=== PATIENT | female | born 1990 | race Two or more races ===

== ENCOUNTER 2019-07-26 15:33 | Inpatient (IN) ==
[2019-07-26] MEDS ORDERED: MEPERIDINE 50 MG/1 ML VIAL IV PRN (15:46)
[2019-07-26 16:14] LABS: Basophils % 0.3 % (0.0-0.8); Eosinophils # 0.1 10*3/uL (0.0-0.87); Hematocrit 25.6 VOL% (35.7-47.0); Immature Granulocytes % 0.7 %; Immature Granulocytes Absolute 0.08 #; Lymphocytes # 2.4 10*3/uL (1.4-4.0); Lymphocytes % 21.4 % (21.3-54.2); Mean Corpuscular HGB Conc 31.3 GM/DL (32-36); Mean Corpuscular Volume 77.3 FL (87-102); Monocytes % 5.6 % (1.7-12.7); Platelet Count 214 T/CUMM (130-400); Red Blood Count 3.31 MC/CUMM (3.8-5.5); Red Cell Distribution Width 13.7 % (9.3-17.3); White Blood Count 11.3 T/CUMM (4-12)
[2019-07-26 16:40] LABS: Alanine Aminotransferase 11 U/L (13-56); Albumin 2.5 G/DL (3.4-5.0); Alkaline Phosphatase 174 U/L (45-117); Aspartate Amino Transferase 11 U/L (0-37); Bilirubin,Total < 0.39 MG/DL (0.2-1.0); Blood Urea Nitrogen 8 MG/DL (7-18); Calcium 8.2 MG/DL (8.5-10.1); Estimated Glom Filtration Rate 88 ML/MIN; Glucose 115 MG/DL (74-106); Osmolality,Calculated 271.8 MOS/KG (273-304); Total Protein 6.5 G/DL (6.4-8.3)
[2019-07-26] MEDS: LACTATED RINGERS 1,000 ML IV SCH ×2 (18:42→22:49)
[2019-07-26] MEDS ORDERED: TERBUTALINE 1 MG/1 ML VIAL ONE (19:02)
[2019-07-26] MEDS ORDERED: BUTORPHANOL 1 MG/ML VIAL ONE (21:05)
[2019-07-26] MEDS: ONDANSETRON 4 MG/2 ML VIAL IV PRN (21:07)
[2019-07-26] MEDS: BUTORPHANOL 1 MG/ML VIAL IV PRN (21:09)
[2019-07-27] MEDS: BUTORPHANOL 1 MG/ML VIAL IV PRN (00:11)
[2019-07-27] MEDS: BUTORPHANOL 2 MG/ML VIAL IV PRN ×2 (00:35→05:36)
[2019-07-27] MEDS ORDERED: OXYTOCIN/LR 20 UNIT/1,000 ML BAG IV SCH (02:00)
[2019-07-27] MEDS: ONDANSETRON 4 MG/2 ML VIAL IV PRN (05:36)
[2019-07-27] MEDS ORDERED: LACTATED RINGERS 1,000 ML IV ONE (07:24)
[2019-07-27] MEDS ORDERED: FAMOTIDINE 20 MG/2 ML VIAL IV ONE (07:24)
[2019-07-27] MEDS ORDERED: CITRIC ACID/SODIUM CITRATE 30 ML UDCUP PO ONE (07:24)
[2019-07-27] MEDS ORDERED: ePHEDrine 50 MG/ML AMP IV PRN (07:24)
[2019-07-27] MEDS ORDERED: NALOXONE 0.4 MG/ML VIAL IV PRN (07:25)
[2019-07-27] MEDS ORDERED: LACTATED RINGERS 250 ML IV PRN (07:25)
[2019-07-27] MEDS ORDERED: PROMETHAZINE 25 MG/1 ML VIAL IM ONE (07:25)
[2019-07-27] MEDS ORDERED: hydrOXYzine HCL 25 MG/1 ML VIAL IM PRN (07:25)
[2019-07-27] MEDS ORDERED: diphenhydrAMINE 50 MG/1 ML VIAL IV PRN ×2 (07:25)
[2019-07-27] MEDS ORDERED: CLINDAMYCIN INJ 900 MG in PREMIX 1 EACH IV SCH (07:30)
[2019-07-27] MEDS ORDERED: fentaNYL 2 MCG/ROPIV 0.2% EPID 100 ML EPIDURAL SCH (07:30)
[2019-07-27] MEDS ORDERED: LACTATED RINGERS 1,000 ML IV SCH (07:30)
[2019-07-27] MEDS: LACTATED RINGERS 1,000 ML IV SCH (09:16)
[2019-07-27 10:28] LABS: Apearance,Urine CLEAR (Clear); Bacteria,Urine Occasional /HPF (Few); Bilirubin,Urine Negative (Negative); Blood, Urine Moderate mg/dL (Negative); Glucose,Urine (UA) Negative (Negative); Ketones,Urine Negative (Negative); Nitrite,Urine Negative (Negative); Protein,Urine Negative; RBC,Urine <1 /HPF (0-4); Squamous Epithelial Cell,Urine Occasional /HPF (0-10); Urine Color Straw (Yellow); Urine Specific Gravity 1.003 (1.001-1.035); Urine Urobilinogen < 2.0 EU/DL (0.2-1.0)
[2019-07-27] MEDS ORDERED: miSOPROStoL 200 MCG TABLET ONE (11:01)
[2019-07-27] MEDS ORDERED: METHYLERGONOVINE 0.2 MG/1 ML AMP ONE (11:02)
[2019-07-27 12:21] LABS: Cord Arterial Blood HCO3 19.3 MMOL/L
[2019-07-27 12:22] LABS: Cord Venous Blood HCO3 21.1 MMOL/L; Cord Venous Blood PCO2 39.7 MMHG; Cord Venous Blood PO2 26.2 MMHG
[2019-07-27] MEDS ORDERED: OXYTOCIN/LR 20 UNIT/1,000 ML BAG IV ONE ×2 (14:47→15:25)
[2019-07-27] MEDS ORDERED: BENZOCAINE 20%/MENTHOL 0.5% SPRAY 56 GM CAN TOP PRN (15:25)
[2019-07-27] MEDS ORDERED: RHO(D) IMMUNE GLOBULIN 300 MCG SYRINGE IM ONE (15:25)
[2019-07-27] MEDS ORDERED: BISACODYL 10 MG SUPP RECTAL PRN (15:25)
[2019-07-27] MEDS ORDERED: LANOLIN 50% CREAM 0.3 OZ TUBE TOP PRN (15:25)
[2019-07-27] MEDS ORDERED: oxyCODONE/ACETAMINOPHEN 5-325 MG TABLET PO PRN ×2 (15:25)
[2019-07-27] MEDS ORDERED: DIPH/TET/ACEL PERT BOOSTER VACCINE 0.5 ML VIAL IM ONE (15:25)
[2019-07-27] MEDS ORDERED: HYDROCORTISONE 2.5% RECTAL CREAM 30 GM TUBE TOP PRN (15:25)
[2019-07-27] MEDS ORDERED: MEASLES/MUMPS/RUBELLA VACCINE 0.5 ML VIAL SUBCUT ONE (15:25)
[2019-07-27] MEDS ORDERED: ACETAMINOPHEN 325 MG TABLET PO PRN (15:25)
[2019-07-27] MEDS ORDERED: WITCH HAZEL PADS 100/JAR TOP PRN (15:25)
[2019-07-27] MEDS: IBUPROFEN 800 MG TABLET PO PRN (18:59)
[2019-07-27] MEDS: DOCUSATE SODIUM 100 MG CAPSULE PO SCH (21:15)
[2019-07-28 03:34] LABS: Basophils # 0.1 10*3/uL (0.0-0.2); Basophils % 0.3 % (0.0-0.8); Eosinophils # 0.1 10*3/uL (0.0-0.87); Eosinophils % 0.9 % (0.00-10.9); Hematocrit 23.5 VOL% (35.7-47.0); Hemoglobin 7.2 GM/DL (12.0-16.0); Immature Granulocytes % 0.7 %; Lymphocytes # 3.1 10*3/uL (1.4-4.0); Lymphocytes % 20.7 % (21.3-54.2); Mean Corpuscular HGB Conc 30.6 GM/DL (32-36); Mean Corpuscular Volume 77.8 FL (87-102); Mean Platelet Volume 11.4 FL (9.6-12.0); Monocytes % 7.9 % (1.7-12.7); Neutrophils % 69.5 % (38.7-73.9); Platelet Count 188 T/CUMM (130-400); Red Blood Count 3.02 MC/CUMM (3.8-5.5)
[2019-07-28] MEDS: IBUPROFEN 800 MG TABLET PO PRN ×3 (04:11→19:38)
[2019-07-28] MEDS: DOCUSATE SODIUM 100 MG CAPSULE PO SCH ×3 (09:49→22:33)
[2019-07-28] MEDS: FERROUS SULFATE 325 MG TABLET PO SCH ×3 (09:49→22:33)
[2019-07-28] MEDS ORDERED: SODIUM CHLORIDE 0.9% 1,000 ML IV PRN (10:31)
[2019-07-28] MEDS ORDERED: INFLUENZA VIRUS VACCINE 0.5 ML SYRINGE IM ONE (15:48)
[2019-07-28 18:56] LABS: Hematocrit 28.6 VOL% (35.7-47.0)
[2019-07-29] MEDS: IBUPROFEN 800 MG TABLET PO PRN (08:50)
[2019-07-29] MEDS: FERROUS SULFATE 325 MG TABLET PO SCH (08:50)
[2019-07-29] MEDS: DOCUSATE SODIUM 100 MG CAPSULE PO SCH (08:50)
[2019-07-29 09:12] VITALS: BP 117/66
[2019-07-29] MEDS ORDERED: INFLUENZA VIRUS VACCINE 0.5 ML SYRINGE IM ONE (09:39)
== END 2019-07-29 11:25 | disposition home or self-care (01) | DRG 806 ==
LOC: N.LD 15:33 → N.OB 07-27 15:15
PROVIDERS: ADMIT Obstetrics & Gynecology; ATTEND Obstetrics & Gynecology

== ENCOUNTER 2022-06-18 06:00 | Inpatient (IN) ==
[2022-06-18] MEDS ORDERED: LACTATED RINGERS 500 ML IV PRN (06:09)
[2022-06-18] MEDS ORDERED: BUTORPHANOL 2 MG/ML VIAL IV PRN (06:09)
[2022-06-18] MEDS ORDERED: LACTATED RINGERS 250 ML IV ONE (06:09)
[2022-06-18] MEDS ORDERED: TRANEXAMIC ACID 1,000 MG in SODIUM CHLORIDE 0.9% 100 ML IV PRN (06:09)
[2022-06-18] MEDS ORDERED: miSOPROStoL 200 MCG TABLET RECTAL PRN (06:09)
[2022-06-18] MEDS ORDERED: ACETAMINOPHEN 325 MG TABLET PO PRN ×2 (06:09→16:14)
[2022-06-18] MEDS ORDERED: CARBOPROST TROMETHAMINE 250 MCG/ML AMP IM PRN (06:09)
[2022-06-18] MEDS ORDERED: OXYTOCIN/LR 20 UNIT/1,000 ML BAG IV ONE ×2 (06:09→16:14)
[2022-06-18] MEDS ORDERED: ONDANSETRON 4 MG/2 ML VIAL IV PRN (06:09)
[2022-06-18] MEDS ORDERED: METHYLERGONOVINE 0.2 MG/1 ML AMP IM PRN (06:09)
[2022-06-18] MEDS ORDERED: MEPERIDINE 25 MG/1 ML VIAL IV PRN (06:22)
[2022-06-18] MEDS ORDERED: OXYTOCIN/LR 20 UNIT/1,000 ML BAG IV SCH (06:30)
[2022-06-18] MEDS ORDERED: LACTATED RINGERS 1,000 ML IV SCH ×2 (06:30→09:00)
[2022-06-18 06:48] LABS: Basophils % 0.3 % (0.0-0.8); Eosinophils # 0.1 10*3/uL (0.0-0.87); Eosinophils % 0.9 % (0.00-10.9); Hematocrit 28.7 VOL% (35.7-47.0); Hemoglobin 9.1 GM/DL (12.0-16.0); Immature Granulocytes % 0.8 %; Lymphocytes # 4.3 10*3/uL (1.4-4.0); Lymphocytes % 35.5 % (21.3-54.2); Mean Corpuscular HGB Conc 31.7 GM/DL (32-36); Mean Corpuscular Volume 75.3 FL (87-102); Mean Platelet Volume 10.7 FL (9.6-12.0); Monocytes # 0.6 10*3/uL (0.11-0.8); Monocytes % 5.1 % (1.7-12.7); Neutrophils % 57.4 % (38.7-73.9); Platelet Count 247 T/CUMM (130-400); Red Blood Count 3.81 MC/CUMM (3.8-5.5); White Blood Count 12.1 T/CUMM (4-12)
[2022-06-18 06:54] LABS: Alanine Aminotransferase 13 U/L (13-56); Albumin 2.9 G/DL (3.4-5.0); Alkaline Phosphatase 155 U/L (45-117); Aspartate Amino Transferase 14 U/L (0-37); Bilirubin,Total < 0.39 MG/DL (0.20-1.00); Blood Urea Nitrogen 9 MG/DL (7-18); Carbon Dioxide 21 MMOL/L (21-32); Chloride 106 MMOL/L (98-107); Glucose 121 MG/DL (74-106); Potassium 3.4 MMOL/L (3.5-5.1); Sodium 136 MMOL/L (136-145); Total Protein 7.2 G/DL (6.4-8.2)
[2022-06-18] MEDS ORDERED: LACTATED RINGERS 1,000 ML IV ONE (08:58)
[2022-06-18] MEDS ORDERED: CITRIC ACID/SODIUM CITRATE 30 ML UDCUP PO ONE (08:58)
[2022-06-18] MEDS ORDERED: FAMOTIDINE 20 MG/2 ML VIAL IV ONE (08:58)
[2022-06-18] MEDS ORDERED: ePHEDrine 50 MG/ML VIAL IV PRN (08:58)
[2022-06-18] MEDS ORDERED: NALOXONE 0.4 MG/ML VIAL IV PRN (08:59)
[2022-06-18] MEDS ORDERED: PROMETHAZINE 25 MG/1 ML VIAL IM ONE (08:59)
[2022-06-18] MEDS ORDERED: diphenhydrAMINE 50 MG/1 ML VIAL IV PRN ×2 (08:59)
[2022-06-18] MEDS ORDERED: hydrOXYzine HCL 25 MG/1 ML VIAL IM PRN (08:59)
[2022-06-18] MEDS ORDERED: fentaNYL 2 MCG/ROPIV 0.2% EPID 100 ML EPIDURAL SCH (09:00)
[2022-06-18 10:34] LABS: Bilirubin,Urine Negative (Negative); Blood, Urine Trace mg/dL (Negative); Glucose,Urine (UA) Negative (Negative); Ketones,Urine Negative (Negative); Nitrite,Urine Negative (Negative); Protein,Urine Negative (Negative); RBC,Urine <1 /HPF (0-4); Squamous Epithelial Cell,Urine Occasional /HPF (0-10); Urine Appearance Clear (Clear); Urine Color Light Yellow (Yellow); Urine Specific Gravity 1.015 (1.001-1.035); Urine Urobilinogen 0.2 eU/dL (<2.0)
[2022-06-18] MEDS ORDERED: fentaNYL 100 MCG/2 ML VIAL ONE (12:08)
[2022-06-18] MEDS ORDERED: LIDOCAINE MPF 2% /EPI 20 ML VIAL ONE (12:08)
[2022-06-18 13:41] LABS: Cord Venous Blood HCO3 22.8 MMOL/L; Cord Venous Blood PCO2 36.6 MMHG; Cord Venous Blood PO2 32.7
[2022-06-18] MEDS ORDERED: oxyCODONE/ACETAMINOPHEN 5-325 MG TABLET PO PRN ×2 (16:14)
[2022-06-18] MEDS ORDERED: HYDROCORTISONE 2.5% RECTAL CREAM 30 GM TUBE TOP PRN (16:14)
[2022-06-18] MEDS ORDERED: MEASLES/MUMPS/RUBELLA VACCINE 0.5 ML VIAL SUBCUT ONE (16:14)
[2022-06-18] MEDS ORDERED: BISACODYL 10 MG SUPP RECTAL PRN (16:14)
[2022-06-18] MEDS ORDERED: RHO(D) IMMUNE GLOBULIN 300 MCG SYRINGE IM ONE (16:14)
[2022-06-18] MEDS ORDERED: DIPH/TET/ACEL PERT BOOSTER VACCINE 0.5 ML VIAL IM ONE (16:14)
[2022-06-18] MEDS ORDERED: LANOLIN 50% CREAM 0.3 OZ TUBE TOP PRN (16:14)
[2022-06-18] MEDS ORDERED: WITCH HAZEL PADS 100/JAR TOP PRN (16:14)
[2022-06-18] MEDS ORDERED: BENZOCAINE 20%/MENTHOL 0.5% SPRAY 56 GM CAN TOP PRN (16:14)
[2022-06-18] MEDS: POTASSIUM CHLORIDE 20 MEQ TABLET PO PRN ×3 (16:59→21:30)
[2022-06-18] MEDS: IBUPROFEN 800 MG TABLET PO PRN (17:49)
[2022-06-18] MEDS: DOCUSATE SODIUM 100 MG CAPSULE PO SCH (21:30)
[2022-06-19] MEDS: IBUPROFEN 800 MG TABLET PO PRN ×2 (04:52→16:16)
[2022-06-19 06:33] LABS: Basophils % 0.2 % (0.0-0.8); Eosinophils # 0.1 10*3/uL (0.0-0.87); Eosinophils % 0.9 % (0.00-10.9); Hematocrit 24.6 VOL% (35.7-47.0); Hemoglobin 7.5 GM/DL (12.0-16.0); Immature Granulocytes % 0.7 %; Immature Granulocytes Absolute 0.09 #; Lymphocytes # 4.1 10*3/uL (1.4-4.0); Mean Corpuscular HGB Conc 30.5 GM/DL (32-36); Mean Corpuscular Volume 76.9 FL (87-102); Mean Platelet Volume 10.6 FL (9.6-12.0); Monocytes # 0.8 10*3/uL (0.11-0.8); Monocytes % 6.4 % (1.7-12.7); Neutrophils % 59.8 % (38.7-73.9); Platelet Count 242 T/CUMM (130-400); Red Cell Distribution Width 14.1 % (9.3-17.3); White Blood Count 12.7 T/CUMM (4-12)
[2022-06-19] MEDS ORDERED: INFLUENZA VIRUS VACCINE 0.5 ML SYRINGE IM ONE (09:00)
[2022-06-19] MEDS: FERROUS SULFATE 325 MG TABLET PO SCH ×2 (09:08→21:26)
[2022-06-19] MEDS: DOCUSATE SODIUM 100 MG CAPSULE PO SCH ×2 (09:08→21:26)
[2022-06-19] MEDS: MULTIVITAMIN (PRENATAL) TABLET PO SCH (09:09)
[2022-06-20] MEDS: IBUPROFEN 800 MG TABLET PO PRN (06:37)
[2022-06-20 07:37] VITALS: BP 101/66
[2022-06-20] MEDS: DOCUSATE SODIUM 100 MG CAPSULE PO SCH (08:35)
[2022-06-20] MEDS: FERROUS SULFATE 325 MG TABLET PO SCH (08:35)
[2022-06-20] MEDS: MULTIVITAMIN (PRENATAL) TABLET PO SCH (08:35)
[2022-06-20] MEDS ORDERED: SODIUM CHLORIDE 0.9% 1,000 ML IV PRN (09:06)
== END 2022-06-20 13:00 | disposition home or self-care (01) | DRG 807 ==
LOC: N.LD 06:00 → N.OB 16:35
PROVIDERS: ADMIT Obstetrics & Gynecology; ATTEND Obstetrics & Gynecology